=== PATIENT | male | born 1960 | race Caucasian/White ===

== ENCOUNTER → 2019-06-19 | Day surgery (SDC) | payer BC ==
[2019-06-16 15:09] VITALS: BMI 35.5
[~2019-06-19] MED LIST: LACTATED RINGERS 1,000 ML IV SCH; LIDOCAINE 1% (10MG/ML) FOR IV START INTRADERMA PRN; PROPOFOL 10 MG/ML 20 ML VIAL IV ONE; SODIUM CHLORIDE 0.9% 1,000 ML IV SCH
[2019-06-19 06:42] VITALS: RESP 18; TEMP 98
--- NOTE | 2019-06-19 08:15 | P.PCN ---
Preoperative Diagnosis: Diagnosis Persistent symptomatic atrial fibrillation with cardiomyopathy tiredness and fatigue Procedure Electrical cardioversion to sinus rhythm Patient underwent electrical cardioversion with a 360 J biphasic shock in the AP configuration but this failed to invert him to sinus rhythm Therefore to simultaneous 360 J shocks were delivered, in a synchronized mode, one in the AP configuration one in the anterior apical configuration Successful conversion to sinus rhythm with a 720 J shock Result Successful electrical cardioversion to sinus rhythm Complete abstinence from alcohol Continue apixaban and continue all other cardiac medications Follow-up after week in the office Lexiscan Cardiolite stress test in sinus rhythm Consideration for an A. fib ablation in the future
[2019-06-19 09:21] VITALS: BP 107/69; PULSE 68
== END | disposition home or self-care (01) ==
LOC: CATHEP 06:12
PROVIDERS: ATTEND Internal Medicine Clinical Cardiac Electrophysiology
DX: I42.8 Other cardiomyopathies (principal); I48.19 Other persistent atrial fibrillation; R00.2 Palpitations; I25.10 Atherosclerotic heart disease of native coronary artery without angina pectoris; G47.30 Sleep apnea, unspecified; Z99.89 Dependence on other enabling machines and devices; Z79.899 Other long term (current) drug therapy; I10 Essential (primary) hypertension; E78.5 Hyperlipidemia, unspecified; Z72.0 Tobacco use; E66.9 Obesity, unspecified; Z68.35 Body mass index [BMI] 35.0-35.9, adult; Z79.01 Long term (current) use of anticoagulants; Z79.82 Long term (current) use of aspirin
CPT/HCPCS: 92960; J2704

== ENCOUNTER 2019-12-29 11:24 | Day surgery (SDC) | payer BC ==
[2019-12-25 12:08] VITALS: BMI 36.2
[~2019-12-29 11:24] MED LIST changes: +HEPARIN SODIUM 1,000 UN/ML (10ML VL) ONE; -LIDOCAINE 1% (10MG/ML) FOR IV START INTRADERMA PRN; +LIDOCAINE 1% INJ 10MG/ML (20 ML MDV) ONE; -PROPOFOL 10 MG/ML 20 ML VIAL IV ONE
[2019-12-29] MEDS ORDERED: SUCCINYLCHOLINE CHLORIDE VIAL 200 MG/10 ML VIAL IV ONE (12:19)
[2019-12-29] MEDS ORDERED: HEPARIN SODIUM,PORCINE 10,000 UNIT/ML 1 ML VIAL ONE (12:19)
[2019-12-29] MEDS ORDERED: PHENYLEPHRINE-0.9% NACL SYG 1 MG/10 ML SYRINGE ONE (12:19)
[2019-12-29] MEDS ORDERED: MIDAZOLAM 2 MG/2 ML VIAL ONE (12:19)
[2019-12-29] MEDS ORDERED: PROTAMINE SULFATE 10 MG/ML 5 ML VIAL IV ONE (12:19)
[2019-12-29] MEDS ORDERED: NEOSTIGMINE 1 MG/ML 10 ML VIAL ONE (12:19)
[2019-12-29] MEDS ORDERED: GLYCOPYRROLATE 0.2 MG/ML 2 ML VIAL ONE (12:19)
[2019-12-29] MEDS ORDERED: ISOPROTERENOL 250 MCG/1.25 ML SYR IV ONE (12:19)
[2019-12-29] MEDS ORDERED: fentaNYL (PF) 50 MCG/ML 2 ML AMP ONE (12:19)
[2019-12-29] MEDS ORDERED: PROPOFOL 10 MG/ML 20 ML VIAL IV ONE (12:19)
[2019-12-29] MEDS ORDERED: FUROSEMIDE 10 MG/ML 2 ML VIAL ONE (12:19)
[2019-12-29] MEDS ORDERED: ROCURONIUM BROMIDE 10 MG/ML 5 ML VIAL IV ONE (12:19)
[2019-12-29] MEDS ORDERED: HEPARIN SOD,PORK IN 0.45% NACL 25,000 UNIT in 0.45% NACL 1 250ML.BAG IV ONE (13:05)
[2019-12-29] MEDS ORDERED: LIDOCAINE 1% INJ 10MG/ML (20 ML MDV) SQ ONE (13:06)
[2019-12-29] MEDS ORDERED: SODIUM CHLORIDE 0.9% 1,000 ML IV ONE (13:55)
[2019-12-29] MEDS ORDERED: HEPARIN SODIUM (1,000 UNIT/ML) 1,000 UNIT in SODIUM CHLORIDE 0.9% 1,000 ML IRRIGATION ONE (15:33)
[2019-12-29] MEDS ORDERED: IOPAMIDOL-250 100ML BTL IV ONE (15:33)
--- NOTE | 2019-12-29 16:42 | P.PCN ---
Preoperative Diagnosis: Diagnosis Atrial fibrillation, symptomatic, refractory to therapy Persistent A. fib Despite adequate rate control of atrial fibrillation, patient developed a cardiomyopathy on 2 separate occasions over the years, ejection fraction less than 35%, nonischemic cardiomyopathy In sinus rhythm LV function normalized to greater than 55% Result No left atrial appendage mass seen on intracardiac echo Successful pulmonary vein isolation of all veins using cryo-ablation Complete entrance block in all 4 veins confirmed No evidence for phrenic nerve injury Esophageal deflection YES , left-sided esophagus Electrical cardioversion with a synchronized shock across the chest NO Induction of atrial fibrillation with catheter manipulation along the septum outside the right superior pulmonary vein at the level of the [place], in between the isolated RSPV and the transseptal puncture A septal line from the roof of the LA to the right inferior pulmonary vein result in termination of atrial fibrillation There was a small channel 1.8 cm in the roof of the LA (V shaped roof) with almost vertically oriented superior veins RF ablation in the LA roof was performed Following that scar mapping/voltage mapping was performed and the linear ablation lines were complete without any Procedure details Patient was brought to the EP lab in a fasting state. Written informed consent was obtained prior to the procedure. Procedure performed under general anesthesia After initial muscle relaxant use, muscle relaxants were not given thereafter in order to assess phrenic nerve during procedure. Patient prepped and draped as per protocol Full cryo-set up with standard preparation of the cryoablation tools done. Femoral Venous access obtained on the right and left groins Venous and arterial Sheaths placed. Diagnostic catheters for the high right atrium, phrenic nerve stimulation and pacing, His bundle, RV and coronary sinus placed Intracardiac echo catheter placed. Long sheath placed in the right atrium Left and right transseptal catheterization performed under intracardiac echo guidance. Intravenous heparin with aCT above 300 Later, catheter positioning and balloon positioning in the left atrium, under intracardiac echo guidance Diagnostic EP study with Drug infusion was Isuprel. No atrial fibrillation induced Coronary sinus pacing and recording Baseline measurements sinus cycle length 740 ms, AZ interval 168 ms, QRS 95 ms and QT interval 380 ms AH interval 61 ms and HV interval 35 ms Atrial pacing performed from the high right atrium and the coronary sinus RV pacing VA Wenckebach block on Isuprel 290 ms AV node Wenckebach block 300 ms Sinus recovery times a 605 100 ms were 1291 and 841 ms respectively Transseptal catheterization performed RA pressure 15/10/12 LA pressure 18/8/13 Transseptal catheterization performed with standard sheath. The cryoablation sheath was then placed with an over the wire exchange without any acute complications. All 4 pulmonary veins were isolated in the following sequence: Left superior followed by left inferior followed by right superior followed by right inferior The cryo-ablation balloon was placed at the os of each vein 1.5 mL of IV dye was injected to confirm an occluded vein Goal during cryoablation was to achieve complete occlusion of the pulmonary vein, achieve -30 degrees C at 30 seconds and achieve -40 degrees C at 60 seconds and a time to effect of less than 60-90 seconds, . If not the balloon was repositioned to obtain this result After completion of Cryoblation with durations from 180-240 seconds, entrance block was confirmed with the Attain circular catheter in a roving fashion around the antrum of the pulmonary veins Phrenic nerve pacing was performed from the SVC, right innominate vein area and diaphragm voltage was monitored. Diaphragmatic contractions were also monitored manually for strength of contraction. Parameter goals for each cryo freeze Complete occlusion of the appropriate vein -30 degrees C by 30 seconds -40 degrees C by 60 seconds Minimum between minus 40-55 degrees C Thaw time greater than 10 seconds Balloon visualized by intracardiac echo The esophagus was intubated. Esophageal Temperature monitoring with a CIRCA catheter formed. Esophageal deflection for hypothermia of the esophagus below 30 degrees C Left superior pulmonary vein Complete isolation, entrance block Left inferior pulmonary vein Complete isolation, entrance block Right superior pulmonary vein, during phrenic nerve pacing Complete isolation, entrance block Right inferior pulmonary vein, during phrenic nerve pacing Complete isolation, entrance block At the end of the procedure the Achieve catheter was once again used to check for entrance block Phrenic nerve stimulation was performed to confirm diaphragmatic stimulation the end of the procedure Cine fluoroscopy was performed at the very end of the procedure to confirm movement of both diaphragms with inspiration and expiration Voltage mapping of the pulmonary veins performed and found to be completely isolated With catheter was roving outside the level of the [place], outside the right superior pulmonary vein, atrial fibrillation was induced A septal RF line was made from the roof of the LA down to the right inferior pulmonary vein This resulted in termination of atrial fibrillation The segment of the septum between the isolated right-sided pulmonary veins and this linear RF lesion was completely quiescent Subsequently linear ablation of the roof was performed. There was a narrow Of 1.8 cm between the right superior and the left superior pulmonary veins which were completely isolated. The roof was V-shaped on account of the almost vertical orientation of both the superior veins. Successful linear ablation was performed and a complete line of block was demonstrated at the end with voltage mapping At the end of the procedure the patient was extubated Heparin was reversed Venous sheaths were removed and hemostasis assured Procedures performed (PVI - CRYO Ablation) Diagnostic EP study with attempted arrhythmia induction CS pacing and recording Left and right transseptal catheterization 3D mapping) Intracardiac echocardiography Pulmonary vein isolation with transseptal and comprehensive EPS, [id number] Left atrial roof line, +[id number] Linear ablation, left atrium, +[id number] Drug Infusion +[id number]
--- NOTE | 2019-12-29 16:44 | P.PRLE ---
RE: Roshan Daigle Dear Dr. 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
[2019-12-29] MEDS ORDERED: ACETAMINOPHEN TAB 325 MG TAB PO PRN (16:45)
[2019-12-29] MEDS: carvediloL 12.5 MG TAB PO SCH (18:10)
[2019-12-29] MEDS: lisinopriL 20 MG TAB PO SCH (19:40)
[2019-12-29] MEDS: APIXABAN 5 MG TAB PO SCH (19:41)
[2019-12-30] MEDS: carvediloL 12.5 MG TAB PO SCH ×2 (06:55→12:40)
--- NOTE | 2019-12-30 07:34 | P.DS ---
Providers Attending physician: Manuel Figueroa Primary care physician: [facility] Course: Patient is doing well. He denies any chest discomfort dizziness lightheadedness palpitations Rhythm is normal he is in sinus rhythm 100 and blood pressure normal He does have a sore throat On examination afebrile 98.9F blood pressure 101/62 mmHg pulse rate in the 80s sinus rhythm Twelve-lead ECG shows sinus mechanism with a specific ST-T abnormalities in the lateral precordial leads Heart sounds S1 and S2 are normal no rub no gallops no murmurs Breath sounds are clear no rhonchi no crackles Abdomen soft No hematoma in either groin Impression Persistent atrial fibrillation associated with reduction LV systolic function/cardio myopathy with past to CHF Improvement in LV function with maintenance of sinus rhythm Status post pulmonary vein isolation AV node ablation in the left atrial roof, the width of the channel in between the isolated pulmonary veins was about 1.8 cm Inducible atrial fibrillation outside the [place] of the right superior pulmonary vein along the posterior septum, linear ablation around this area resulting in termination of A. fib This septum between the isolated right pulmonary veins and the linear ablation line was completely quiescent No further atrial fibrillation inducible with high-dose Isuprel and burst stimulation in the HRA Plan Continue cardio myopathy medications Continue ELIQUIS Discharge home by CPM today son just below this morning Ambulate in the formerly [facility] Follow up in 1 week Plan - Discharge Summary Discharge Rx Participant: Yes New Discharge Prescriptions: No Action Apixaban [Eliquis] 5 mg PO BID Enalapril [Vasotec] 20 mg PO BID carvediloL [Coreg] 12.5 mg PO TID Atorvastatin [Lipitor] 20 mg PO DAILY Spironolactone [Aldactone] 50 mg PO DAILY Aspirin [Adult Low Dose Aspirin EC] 81 mg PO DAILY Multivitamin/Iron/Folic Acid [Centrum Adults Tablet] 1 each PO DAILY Acetaminophen [Tylenol Extra Strength] 1,000 mg PO DIRECTED PRN PRN Reason: Pain Discharge Medication List Apixaban [Eliquis] 5 mg PO BID 06/16/19 [History] Aspirin [Adult Low Dose Aspirin EC] 81 mg PO DAILY 06/16/19 [History] Atorvastatin [Lipitor] 20 mg PO DAILY 06/16/19 [History] Enalapril [Vasotec] 20 mg PO BID 06/16/19 [History] Spironolactone [Aldactone] 50 mg PO DAILY 06/16/19 [History] carvediloL [Coreg] 12.5 mg PO TID 06/16/19 [History] Acetaminophen [Tylenol Extra Strength] 1,000 mg PO DIRECTED PRN 12/25/19 [History] Multivitamin/Iron/Folic Acid [Centrum Adults Tablet] 1 each PO DAILY 12/25/19 [History]
[2019-12-30 08:18] VITALS: BP 98/62; PULSE 85; RESP 16; TEMP 98.6
[2019-12-30 08:30] LABS: Calcium 8.9 mg/dL (8.4-10.2)
[2019-12-30] MEDS: APIXABAN 5 MG TAB PO SCH (08:33)
[2019-12-30] MEDS: lisinopriL 20 MG TAB PO SCH (08:33)
[2019-12-30] MEDS ORDERED: ATORVASTATIN 20 MG TAB PO SCH (09:00)
[2019-12-30] MEDS ORDERED: SPIRONOLACTONE 25 MG TAB PO SCH (09:00)
[2019-12-30] MEDS ORDERED: ASPIRIN 81 MG PO SCH (09:00)
[2019-12-30] MEDS ORDERED: ACETAMINOPHEN TAB 500 MG TAB PO PRN (11:48)
--- NOTE | 2019-12-30 19:43 | CONS ---
CONSULTATION CHIEF COMPLAINT: Chronic atrial fibrillation. HISTORY OF PRESENT ILLNESS: This is another admission for this 59-year-old white male with a history of chronic atrial fibrillation. He also has a history of hypertension and hyperlipidemia. He is overweight. He is being admitted for elective cardioversion. REVIEW OF SYSTEMS: He has had no recent syncope, neurologic problems, loss of vision in either eye, chest pain, shortness of breath, cough, hemoptysis, orthopnea, PND, abdominal pain, nausea, vomiting, hematemesis, melena, hematochezia, jaundice, renal failure, hematuria, frequency, urgency, incontinence, nocturia, diabetes, etc. Past medical history, family history, and personal and social histories reveal that he is on atorvastatin 20 mg at bedtime, enalapril 20 mg once a day, carvedilol 12.5 mg t.i.d., Eliquis 5 mg twice a day, spironolactone 50 mg once a day and 81 mg of aspirin. He never has been a smoker and drinks only occasionally. Surgically, he has had tonsillectomy and adenoidectomy. PHYSICAL EXAMINATION: Blood pressure is 110/70 with a pulse of 80, respirations of 16. He is afebrile. In general, he appeared to be overweight and in no acute distress. Skin color was normal. Skin was warm and dry. Lymph nodes were not enlarged. Head, ears, eyes, nose, mouth and throat were normal. Neck veins were not distended. Thyroid was not enlarged. The chest was clear to auscultation and percussion. The cardiac exam demonstrated what sounds like normal sinus rhythm and no murmurs or extra sounds. The abdomen was protuberant, soft and nontender without any visceromegaly or masses. Bowel sounds were present. Extremities were normal. Neurologically he was intact. IMPRESSION: 1. Atrial fibrillation. 2. Hypertension. 3. History of congestive heart failure. PLAN: No recommendations for his management at this time. He is doing well. MMODL / IJN: [id number] /
--- NOTE | 2019-12-31 18:41 | PN ---
PROGRESS NOTE DATE OF SERVICE: 12/30/2019 CHIEF COMPLAINT: Status post procedure for atrial fibrillation. HISTORY OF PRESENT ILLNESS: This gentleman is doing well. He has had no shortness of breath, palpitations, chest pain, etc. He expects to go home today. PHYSICAL EXAMINATION: He is in sinus rhythm. Chest is clear. Cardiac exam is normal. The abdomen is protuberant. Extremities are normal. IMPRESSION: Atrial fibrillation. PLAN: Probably home today. MMODL / IJN: [id number] /
== END 2019-12-30 14:57 | disposition home or self-care (01) ==
LOC: CATHEP 11:24 → 3SCARD 17:15 → 3NCARDOBS 21:09 → CATHEP 12-30 14:57
PROVIDERS: ATTEND Internal Medicine Clinical Cardiac Electrophysiology
DX: I48.19 Other persistent atrial fibrillation (principal); I11.0 Hypertensive heart disease with heart failure; I50.9 Heart failure, unspecified; E78.5 Hyperlipidemia, unspecified; E66.3 Overweight; Z68.36 Body mass index [BMI] 36.0-36.9, adult; Z98.890 Other specified postprocedural states; Z79.01 Long term (current) use of anticoagulants; Z79.82 Long term (current) use of aspirin; Z79.899 Other long term (current) drug therapy
CPT/HCPCS: 85347; 93623; 93662; 93613; 93656; 93657; 80048; 84132; C1769 ×5; C1894 ×2; C1730 ×2; C1759; C1893; C1733; C1766; C1732; J2250; J0330; J2720; J1644 ×3; J1940; J2710; J2001; J3010; J2370; J2704; Q9966

== ENCOUNTER → 2020-09-20 | Outpatient (CLI) | payer BC ==
[2020-09-20 12:52] LABS: Appearance,Urine Clear (Clear); Bilirubin,Urine Negative (Negative); Blood,Urine Negative (Negative); Color,Urine Yellow; Glucose,Urine (UA) Negative (Negative); Ketones,Urine Negative (Negative); Leukocyte Esterase,Urine Negative (Negative); Nitrite,Urine Negative (Negative); PH, Urine 5.5 (5.0-8.0); Protein,Urine Trace (Negative); Specific Gravity,Urine 1.022 (1.001-1.035); Urobilinogen,Urine <2.0 mg/dL (<2.0)
[2020-09-20 12:54] LABS: Creatinine,Urine Random 188.9 mg/dL; Protein/Creatinine Ratio,Urine 0.069
[2020-09-20 23:17] LABS: Basophils # (A) 0.06 X 10*3/uL (0.00-0.10); Basophils % (A) 0.8 %; Eosinophils # (A) 0.39 X 10*3/uL (0.04-0.35); HCT 35.9 % (39.6-50.0); HGB 11.4 g/dL (13.0-17.0); Lymphocytes # (A) 1.91 X 10*3/uL (0.90-5.00); Lymphocytes % (A) 24.5 %; MCH 30.3 pg (27.0-32.0); MCHC 31.8 g/dL (32.0-37.0); MCV 95.5 fL (80.0-97.0); Mean Platelet Volume 10.4 fL (9.5-12.2); Monocytes # (A) 0.59 X 10*3/uL (0.20-1.00); Monocytes % (A) 7.6 %; Neutrophils # (A) 4.84 X 10*3/uL (1.80-7.70); Neutrophils % (A) 61.8 %; Platelet Count 259 X 10*3/uL (140-440); RBC 3.76 X 10*6/uL (4.40-5.60); RDW 13.1 % (11.5-14.5); WBC 7.81 X 10*3/uL (4.50-10.00)
[2020-09-21 01:40] LABS: % Iron Saturation 21.68 (15.00-50.00); African American GFR (CKD) 43.1 (60.0-200.0); Albumin 4.6 g/dL (3.80-4.90); Anion Gap 7.2 mmol/L (4.00-12.00); BUN/Creat Ratio 16.84 Ratio (12.00-20.00); Calcium 10.2 mg/dL (8.7-10.3); Carbon Dioxide 19.8 mmol/L (21.6-31.8); Magnesium 2.1 mg/dL (1.5-2.4); Non-African American GFR(CKD) 37.2 (60.0-200.0); Phosphorus 3.2 mg/dL (2.4-5.1); Potassium 5.1 mmol/L (3.5-5.5); Uric Acid 8.3 mg/dL (3.7-8.7)
[2020-09-21 01:48] LABS: Ferritin 103.9 ng/mL (22.0-322.0)
== END | disposition home or self-care (01) ==
LOC: LABWHC1 11:14
PROVIDERS: ATTEND Nurse Practitioner Family
DX: N39.0 Urinary tract infection, site not specified (principal); N18.32 Chronic kidney disease, stage 3b; N25.81 Secondary hyperparathyroidism of renal origin; E55.9 Vitamin D deficiency, unspecified; D64.9 Anemia, unspecified; M10.9 Gout, unspecified; R80.9 Proteinuria, unspecified
CPT/HCPCS: 36415; 80048; 81003; 82040; 82306; 82570; 82728; 83540; 83550; 83735; 83970; 84100; 84156; 84550; 85025